=== PATIENT | male | born 1975 | race Caucasian/White ===

== ENCOUNTER 2023-09-28 12:05 | Emergency (ER) | payer OTHER, MEDICARE ==
[~2023-09-28] VITALS: Ht 180.3 cm; Wt 142.0 kg
[~2023-09-28 12:05] MED LIST: AMITRIPTYLINE H50 MG PO; ASPIRIN EC81 MG PO; CYCLOBENZAPRINE10 MG PO; GABAPENTIN400 MG PO; MEDI-MECLIZINE25 MG PO; METHOCARBAMOL500 MG PO; NITROSTAT0.4 MG SL; NORCO 5-325 TA1 EACH PO; OMEPRAZOLE40 MG PO
[2023-09-28 12:53] LABS: BASOPHILS 0.7 % (0-2); EOSINOPHILS 2.1 % (0-6); HEMATOCRIT 45.6 % (35.0-50.0); HEMOGLOBIN 14.9 g/dL (12.0-18.0); MCH 25.9 (27-36); MCHC 32.6 g/dl (30-36); MCV 79.4 fl (81-99); MONOCYTES 7.7 % (0-12); NEUTROPHILS 70.5 % (39-80); PLATELET COUNT 275 K/uL (140-440); RBC 5.74 M/ul (4.3-5.7)
[2023-09-28 13:10] LABS: ALBUMIN 3.5 g/dL (3.4-5.0); ALBUMIN/GLOBULIN RATIO 0.78 (1.1-2.4); ANION GAP 14.7 (7-21); BILIRUBIN, TOTAL 0.3 ng/dL (0.2-1.0); BUN/CREATININE RATIO 8.23 (6.0-28.6); CALCIUM 8.4 mg/dL (8.5-10.1); CREATININE, SERUM 0.85 mg/dL (0.70-1.30); POTASSIUM 3.7 mmol/L (3.5-5.1)
[2023-09-28] MEDS ORDERED: ONDANSETRON ODT8 MG PO (16:21)
[2023-09-28 16:32] VITALS: BP 145/64
== END 2023-09-28 16:33 | disposition home or self-care (01) ==
LOC: ED 12:05
PROVIDERS: Emergency Medicine
DX: K52.9 Noninfective gastroenteritis and colitis, unspecified (principal); N28.9 Disorder of kidney and ureter, unspecified; R55 Syncope and collapse; G40.909 Epilepsy, unspecified, not intractable, without status epilepticus; I10 Essential (primary) hypertension; G35 Multiple sclerosis; Z79.899 Other long term (current) drug therapy; Z87.891 Personal history of nicotine dependence
CPT/HCPCS: 36415; 74177; 80053; 83690; 85025; J1170; J2405; J7030; Q9967

== ENCOUNTER 2024-06-06 18:00 | Emergency (ER) | payer OTHER, MEDICARE ==
[~2024-06-06] VITALS: Ht 180.3 cm; Wt 151.8 kg
[~2024-06-06 18:00] MED LIST changes: +ONDANSETRON ODT8 MG PO
[2024-06-06] MEDS ORDERED: ASPIRIN81 MG PO (19:55)
[2024-06-06] MEDS ORDERED: VIT D3-VIT K21 EACH PO (19:55)
[2024-06-06] MEDS ORDERED: GNP B-COMPLEX1 EACH PO (19:56)
[2024-06-06] MEDS ORDERED: LIPITOR20 MG PO (19:56)
[2024-06-06] MEDS ORDERED: METFORMIN HCL500 MG PO (19:56)
[2024-06-06 20:09] LABS: EOSINOPHILS 2.5 % (0-6); HEMATOCRIT 43.8 % (35.0-50.0); LYMPHOCYTES 26.4 % (24-44); MCH 25.6 (27-36); MCHC 31.9 g/dl (30-36); MCV 80.2 fl (81-99); MONOCYTES 6.6 % (0-12); NEUTROPHILS 63.5 % (39-80); PLATELET COUNT 348 K/uL (140-440); RBC 5.47 M/ul (4.3-5.7); RDW 16.1 (10.5-15.0)
[2024-06-06 20:33] LABS: ALBUMIN 3.7 g/dL (3.4-5.0); ALBUMIN/GLOBULIN RATIO 0.86 (1.1-2.4); ANION GAP 14.7 (7-21); BILIRUBIN, TOTAL 0.3 ng/dL (0.2-1.0); BUN/CREATININE RATIO 10.71 (6.0-28.6); CALCIUM 9.3 mg/dL (8.5-10.1); CREATININE, SERUM 1.12 mg/dL (0.70-1.30); POTASSIUM 3.7 mmol/L (3.5-5.1)
[2024-06-06 20:36] LABS: BILIRUBIN, URINE NEGATIVE (negative); BLOOD/HGB, URINE NEGATIVE (Negative); KETONE, URINE NEGATIVE (Negative); LEUK ESTERASE, URINE NEGATIVE (negative); NITRITE, URINE NEGATIVE (negative); PH, URINE 5.5 (5-7)
[2024-06-06 20:52] LABS: AMPHETAMINES, URINE NEGATIVE (NEGATIVE); BARBITURATES, URINE NEGATIVE (NEGATIVE); BENZODIAZEPINE, URINE NEGATIVE (NEGATIVE); BUPRENORPHINE, URINE NEGATIVE (NEGATIVE); CANNABINOID, URINE NEGATIVE (NEGATIVE); COCAINE, URINE NEGATIVE (NEGATIVE); ECSTASY, URINE NEGATIVE (NEGATIVE); FENTANYL, URINE NEGATIVE (NEGATIVE); METHADONE, URINE NEGATIVE (NEGATIVE); OPIATES, URINE NEGATIVE (NEGATIVE); OXYCODONE, URINE NEGATIVE (NEGATIVE); PHENCYCLIDINE, URINE NEGATIVE (NEGATIVE)
[2024-06-06 21:00] VITALS: BP 171/79
--- NOTE | 2024-06-06 21:47 | EKG ---
[facility] [address] [facility] [place] [address] Signed Sinus tachycardia Left anterior fascicular block Cannot rule out Inferior infarct (masked by fascicular block?) , age undetermined Abnormal ECG No previous ECGs available Confirmed by Mo Barfield MD () on 06/06/2024 9:47:20 PM Electronically Signed By: MO BARFIELD MD 06/06/24 2147 PATIENT NAME: JOYA BRANDON FRANCIS Electrocardiogram DATE OF : 75 PHYSICIAN: MO BARFIELD MD REPORT #: [id number] REPORT IS CONFIDENTIAL AND NOT TO BE RELEASED WITHOUT AUTHORIZATION
== END 2024-06-06 21:16 | disposition home or self-care (01) ==
LOC: ED 18:00
PROVIDERS: Internal Medicine
DX: R55 Syncope and collapse (principal); M54.2 Cervicalgia; R51.9 Headache, unspecified; R07.9 Chest pain, unspecified; I10 Essential (primary) hypertension; E11.9 Type 2 diabetes mellitus without complications; E78.00 Pure hypercholesterolemia, unspecified; I25.2 Old myocardial infarction; Z87.891 Personal history of nicotine dependence; Z91.81 History of falling; Z79.82 Long term (current) use of aspirin; Z79.84 Long term (current) use of oral hypoglycemic drugs; Z79.899 Other long term (current) drug therapy
CPT/HCPCS: 36415; 70450; 71045; 72125; 80053; 80307; 81003; 83880; 84484; 85025; 93005; 93010; 99284-25; G0480